=== PATIENT | female | born 1985 | race Hispanic/Latino ===

== ENCOUNTER → 2025-05-03 | Day surgery (SDC) | payer OTHER ==
[~2025-05-03] MED LIST: FENTANYL CITRATE/PF 100MCG/2 ML INJ ONE; KETAMINE 50MG/5ML SYR ONE; LIDOCAINE HCL 2% LOCAL INJ 5 ML SDV VIAL INJ ONE; LIPITOR10 MG PO; METOCLOPRAMIDE HCL 10 MG/2ML VIAL ONE; ONDANSETRON HCL INJ 2MG/ML 2ML 2 MG/ML VIAL ONE; PANTOPRAZOLE SO40 MG PO; PROPOFOL IV EMULSION 50 ML IV ONE; SUCRALFATE1 GM PO
[2025-05-03] MEDS: LACTATED RINGER'S 1,000 ML ONE (13:59)
[2025-05-03 15:18] VITALS: BP 119/60; PULSE 86; RESP 17; O2SAT 97
== END | disposition home or self-care (01) ==
LOC: OR 11:42
PROVIDERS: ATTEND Internal Medicine Gastroenterology
DX: K29.70 Gastritis, unspecified, without bleeding (principal); K20.90 Esophagitis, unspecified without bleeding; K44.9 Diaphragmatic hernia without obstruction or gangrene; K21.9 Gastro-esophageal reflux disease without esophagitis; K59.09 Other constipation; E78.00 Pure hypercholesterolemia, unspecified; Z71.89 Other specified counseling; Z79.899 Other long term (current) drug therapy; Z68.28 Body mass index [BMI] 28.0-28.9, adult; Z71.3 Dietary counseling and surveillance
CPT/HCPCS: 43239; J2003; J2405; J2470; J2704; J2765; J3010; J7121